=== PATIENT | male | born 1960 | race Caucasian/White ===

== ENCOUNTER → 2016-11-10 | Outpatient (CLI) | payer OTHER, BC ==
[~2016-11-10] MED LIST: CALC625T23 PO; ENOX100S5 SQ; GABA300C PO; INSU100C SQ-INSULIN; INSU100I18 SQ; INSU100V8 SQ; LACT1CAP35 PO; METF100010 PO; MULT-412 PO; RIVA15TA PO; RIVA20TA PO; ZOLP10TA PO
== END | disposition home or self-care (01) ==
LOC: RAD 13:46
PROVIDERS: ATTEND Family Medicine
DX: N20.2 Calculus of kidney with calculus of ureter (principal)
CPT/HCPCS: 74176

== ENCOUNTER → 2016-11-30 | Outpatient (CLI) | payer OTHER, BC ==
[2016-11-30 09:14] LABS: BLOOD UREA NITROGEN 18 mg/dL (7-18)
[2016-11-30 09:18] LABS: ASPARTATE AMINO TRANSFERASE 81 U/L (15-37)
== END | disposition home or self-care (01) ==
LOC: STAR 08:23
PROVIDERS: ATTEND Otolaryngology
DX: Z01.818 Encounter for other preprocedural examination (principal); C02.9 Malignant neoplasm of tongue, unspecified; C14.0 Malignant neoplasm of pharynx, unspecified
CPT/HCPCS: 36415; 80053

== ENCOUNTER 2016-12-05 09:18 | Day surgery (SDC) | payer OTHER ==
[2016-11-30 08:57] VITALS: BP 132/90
[~2016-12-05] VITALS: Ht 188 cm; Wt 133.0 kg
[2016-12-05] MEDS ORDERED: LACTATED RINGERS 1,000 ML IV SCH (09:44)
[2016-12-05 09:53] VITALS: BP 132/90
[2016-12-05] MEDS ORDERED: ACETAMINOPHEN 500 MG TABLET ONE ×3 (10:46→10:47)
[2016-12-05] MEDS ORDERED: MIDAZOLAM 1 MG/ML, 2ML ONE (10:55)
[2016-12-05] MEDS ORDERED: FENTANYL PF 250 MCG/5ML ONE (10:55)
[2016-12-05] MEDS ORDERED: METOCLOPRAMIDE 5 MG/ML, 2ML ONE (11:15)
[2016-12-05] MEDS ORDERED: PROPOFOL 10 MG/ML, 20ML ONE (11:15)
[2016-12-05] MEDS ORDERED: SUCCINYLCHOLINE 20 MG/ML, 10ML ONE (11:15)
[2016-12-05] MEDS ORDERED: EPHEDRINE 50 MG/ML, 1ML ONE (11:15)
[2016-12-05] MEDS ORDERED: ONDANSETRON 2MG/ML, 2ML ONE (11:15)
[2016-12-05] MEDS ORDERED: CEFAZOLIN 1,000 MG ONE (11:15)
[2016-12-05] MEDS ORDERED: EPHEDRINE 50 MG/ML, 1ML IVPush PRN (11:30)
[2016-12-05] MEDS ORDERED: PROMETHAZINE 25 MG/ML, 1ML IV PRN (11:30)
[2016-12-05] MEDS ORDERED: hydrALAzine 20 MG/ML, 1ML IV PRN (11:30)
[2016-12-05] MEDS ORDERED: OXYcodone 5 MG/5 ML ORAL.SOL UDC PO PRN (11:30)
[2016-12-05] MEDS ORDERED: METOPROLOL 1 MG/ML, 5ML IV PRN (11:30)
[2016-12-05] MEDS ORDERED: LABETALOL 5MG/ML, 20ML IV PRN (11:30)
[2016-12-05] MEDS ORDERED: MEPERIDINE/PF 25MG/0.5ML IVPush PRN (11:30)
[2016-12-05] MEDS ORDERED: FENTANYL PF 100 MCG/2ML IV PRN (11:30)
[2016-12-05] MEDS ORDERED: HYDROmorphone 1 MG/ML, 1ML IV PRN (11:30)
[2016-12-05] MEDS ORDERED: ONDANSETRON 2MG/ML, 2ML IVPush PRN (11:30)
[2016-12-05] MEDS ORDERED: LIDOCAINE/PF 1%-EPI 1:200K, 30 ML INFIL ONE (11:32)
== END 2016-12-05 14:20 | disposition home or self-care (01) ==
LOC: OUT 09:18
PROVIDERS: ATTEND Otolaryngology
DX: K13.21 Leukoplakia of oral mucosa, including tongue (principal); K14.8 Other diseases of tongue; E11.9 Type 2 diabetes mellitus without complications; Z86.718 Personal history of other venous thrombosis and embolism; Z80.1 Family history of malignant neoplasm of trachea, bronchus and lung; Z82.3 Family history of stroke; Z83.49 Family history of other endocrine, nutritional and metabolic diseases; Z83.3 Family history of diabetes mellitus; Z72.89 Other problems related to lifestyle; Z79.4 Long term (current) use of insulin
CPT/HCPCS: 36415; 41120; 82962; 85610; 85730; 88305; 88331; J0330; J0690; J2250; J2405; J2704; J2765; J3010; J3490; J7120

== ENCOUNTER → 2017-04-26 | Outpatient (CLI) | payer OTHER | END | disposition home or self-care (01) | LOC: ROC 12:48 | PROVIDERS: ATTEND Radiology Radiation Oncology | DX: C02.9 Malignant neoplasm of tongue, unspecified (principal); E78.00 Pure hypercholesterolemia, unspecified; G47.30 Sleep apnea, unspecified; Z79.899 Other long term (current) drug therapy; Z86.718 Personal history of other venous thrombosis and embolism | CPT/HCPCS: 99214; G0463 ==

== ENCOUNTER 2017-05-08 09:12 | Inpatient (IN) | payer OTHER ==
[2017-05-05 09:28] VITALS: BP 161/93
[2017-05-05 09:56] LABS: BLOOD UREA NITROGEN 13 mg/dL (7-18)
[2017-05-05 10:03] LABS: ASPARTATE AMINO TRANSFERASE 94 U/L (15-37)
[~2017-05-08] VITALS: Ht 190.5 cm; Wt 136.0 kg
[~2017-05-08 09:12] MED LIST changes: +BACITRACIN OINT 500U/GM, 15 GM ONE; +DAPA10TA PO; +EPINEPHRINE 1 MG/ML, 1ML ONE; +INSU300I SQ; +INSU3INS SQ-INSULIN; +LIDOCAINE/PF 0.5% ,50ML ONE
[2017-05-08] MEDS ORDERED: ENOX100S5 SQ (09:50)
[2017-05-08] MEDS ORDERED: RIVA20TA PO (09:50)
[2017-05-08] MEDS: LACTATED RINGERS 1,000 ML IV SCH ×3 (10:04→21:19)
[2017-05-08] MEDS ORDERED: PREG75CA PO (10:09)
[2017-05-08] MEDS ORDERED: MIDAZOLAM 1 MG/ML, 2ML ONE (10:30)
[2017-05-08] MEDS ORDERED: FENTANYL PF 100 MCG/2ML ONE ×4 (10:30→14:45)
[2017-05-08] MEDS ORDERED: ONDANSETRON 2MG/ML, 2ML IVPush PRN ×2 (11:00→17:30)
[2017-05-08] MEDS ORDERED: LABETALOL 5MG/ML, 20ML IV PRN (11:00)
[2017-05-08] MEDS ORDERED: FENTANYL PF 100 MCG/2ML IV PRN (11:00)
[2017-05-08] MEDS ORDERED: METOCLOPRAMIDE 5 MG/ML, 2ML IV PRN (11:00)
[2017-05-08] MEDS ORDERED: HYDROmorphone 1 MG/ML, 1ML IV PRN (11:00)
[2017-05-08] MEDS ORDERED: ACETAMINOPHEN 325 MG TABLET PO PRN (11:00)
[2017-05-08] MEDS ORDERED: hydrALAzine 20 MG/ML, 1ML IV PRN (11:00)
[2017-05-08] MEDS ORDERED: OXYcodone 5 MG/5 ML ORAL.SOL UDC PO PRN (11:00)
[2017-05-08] MEDS ORDERED: PROPOFOL 10 MG/ML, 20ML ONE (11:02)
[2017-05-08] MEDS ORDERED: NEOSTIGMINE 1 MG/ML, 10ML ONE (11:02)
[2017-05-08] MEDS ORDERED: ROCURONIUM 10 MG/ML ONE (11:02)
[2017-05-08] MEDS ORDERED: ONDANSETRON 2MG/ML, 2ML ONE ×2 (11:02→14:31)
[2017-05-08] MEDS ORDERED: SUCCINYLCHOLINE 20 MG/ML, 10ML ONE (11:02)
[2017-05-08] MEDS ORDERED: CEFAZOLIN 1,000 MG ONE (11:02)
[2017-05-08] MEDS ORDERED: GLYCOPYRROLATE 0.2MG/1ML, 5ML ONE (11:02)
[2017-05-08] MEDS ORDERED: DEXAMETHASONE 4 MG/ML, 1ML ONE (11:02)
[2017-05-08] MEDS ORDERED: METOCLOPRAMIDE 5 MG/ML, 2ML ONE (14:31)
[2017-05-08 15:40] VITALS: BP 122/82
[2017-05-08] MEDS: OXYcodone 5 MG/5 ML ORAL.SOL UDC PO PRN (18:02)
[2017-05-08 19:56] VITALS: BP 126/79
[2017-05-08] MEDS ORDERED: ENOXAPARIN 100 MG/ML SQ SCH (20:30)
[2017-05-08] MEDS: [UNRECOGNIZED DRUG - REMARK] MC SCH (20:30)
[2017-05-08] MEDS ORDERED: GABAPENTIN 300 MG CAPSULE PO SCH (21:00)
[2017-05-08] MEDS ORDERED: ZOLPIDEM 10MG TABLET PO SCH (21:00)
[2017-05-08] MEDS ORDERED: PREGABALIN 75 MG CAPSULE PO SCH (21:30)
[2017-05-09 00:01] VITALS: BP 116/76
[2017-05-09] MEDS: INSULIN ASPART 100 UNITS/ML, 3ML PEN LOW DOSE SS SQ-INSULIN SCH ×3 (00:14→13:13)
[2017-05-09] MEDS: OXYcodone 5 MG/5 ML ORAL.SOL UDC PO PRN ×3 (00:27→13:16)
[2017-05-09] MEDS: LACTATED RINGERS 1,000 ML IV SCH (03:16)
[2017-05-09 03:27] VITALS: BP 112/67
[2017-05-09] MEDS: [UNRECOGNIZED DRUG - REMARK] MC SCH (04:19)
[2017-05-09 06:50] VITALS: BP 108/67
[2017-05-09] MEDS ORDERED: FLU VACC QS2017-18 (36MOS+) UP/PF 0.5 ML IM-VACC ONE (08:00)
[2017-05-09 13:06] VITALS: BP 129/72
[2017-05-09] MEDS ORDERED: OXYC5SOL8 PO (13:14)
== END 2017-05-09 14:00 | disposition home or self-care (01) | DRG 137 ==
LOC: OUT 09:12 → 4NOR 15:36 → OUT 16:21
PROVIDERS: ADMIT Otolaryngology; ATTEND Otolaryngology
PROC: 0CB7XZZ Excision of Tongue, External Approach (ICD-10-PCS; principal; 2017-05-08 11:00)
DX: C02.9 Malignant neoplasm of tongue, unspecified (principal); C79.89 Secondary malignant neoplasm of other specified sites; G47.33 Obstructive sleep apnea (adult) (pediatric); I10 Essential (primary) hypertension; E66.9 Obesity, unspecified; Z68.37 Body mass index [BMI] 37.0-37.9, adult
CPT/HCPCS: 36415; 80053; 82962; 88305; 88307; 88309; 88331; 88332; 90686; 93005; C1729; J0171; J0690; J1100; J1650; J1815; J2001; J2250; J2405; J2704; J2710; J3010; J3490; J0330; J2765; J7120

== ENCOUNTER → 2017-08-07 | Outpatient (CLI) | payer OTHER ==
[~2017-08-07] MED LIST changes: -BACITRACIN OINT 500U/GM, 15 GM ONE; -EPINEPHRINE 1 MG/ML, 1ML ONE; +GRAN1PAT TD; -LIDOCAINE/PF 0.5% ,50ML ONE; +OXYC5SOL8 PO; +PREG75CA PO
== END ==
LOC: ROC 14:51
PROVIDERS: ATTEND Radiology Radiation Oncology
DX: Z02.9 Encounter for administrative examinations, unspecified (principal)

== ENCOUNTER → 2017-08-23 | Outpatient (CLI) | payer OTHER | END | disposition home or self-care (01) | LOC: ROC 09:45 | PROVIDERS: ATTEND Radiology Radiation Oncology | DX: C02.9 Malignant neoplasm of tongue, unspecified (principal) | CPT/HCPCS: 99213; G0463 ==

== ENCOUNTER → 2018-01-09 | Outpatient (CLI) | payer OTHER | END | disposition home or self-care (01) | LOC: PETCFH 08:55 | PROVIDERS: ATTEND Radiology Radiation Oncology | DX: C02.1 Malignant neoplasm of border of tongue (principal) | CPT/HCPCS: 78815; A9552 ==

== ENCOUNTER → 2018-01-11 | Outpatient (CLI) | payer OTHER | END | disposition home or self-care (01) | LOC: ROC 07:41 | PROVIDERS: ATTEND Radiology Radiation Oncology | DX: C02.1 Malignant neoplasm of border of tongue (principal) | CPT/HCPCS: 99212; G0463 ==

== ENCOUNTER → 2018-07-06 | Outpatient (CLI) | payer OTHER | END | disposition home or self-care (01) | LOC: PETCFH 07:58 | PROVIDERS: ATTEND Otolaryngology | DX: R91.1 Solitary pulmonary nodule (principal); C02.9 Malignant neoplasm of tongue, unspecified | CPT/HCPCS: 78815; A9552 ==

== ENCOUNTER → 2019-01-23 | Outpatient (CLI) | payer OTHER ==
[~2019-01-23] MED LIST changes: +OMNIPAQUE 350 MG/ML, 100ML BOTTLE ONE
== END | disposition home or self-care (01) ==
LOC: CFH 14:07
PROVIDERS: ATTEND Otolaryngology
DX: C02.9 Malignant neoplasm of tongue, unspecified (principal); C14.0 Malignant neoplasm of pharynx, unspecified; K14.8 Other diseases of tongue
CPT/HCPCS: 70491; 82565; Q9967

== ENCOUNTER → 2019-07-09 | Outpatient (CLI) | payer OTHER ==
[~2019-07-09] MED LIST changes: -OMNIPAQUE 350 MG/ML, 100ML BOTTLE ONE
== END | disposition home or self-care (01) ==
LOC: PETCFH 12:40
PROVIDERS: ATTEND Otolaryngology
DX: C02.9 Malignant neoplasm of tongue, unspecified (principal); R22.1 Localized swelling, mass and lump, neck; J98.11 Atelectasis
CPT/HCPCS: 78815; A9552

== ENCOUNTER → 2019-08-16 | Outpatient (CLI) | payer OTHER ==
[~2019-08-16] MED LIST changes: +PHENERGAN CODEINE PO; +PREG200C PO
== END | disposition home or self-care (01) ==
LOC: CFH 11:32
PROVIDERS: ATTEND Family Medicine
DX: J18.1 Lobar pneumonia, unspecified organism (principal); R91.8 Other nonspecific abnormal finding of lung field; J98.11 Atelectasis
CPT/HCPCS: 71046

== ENCOUNTER 2019-08-20 15:48 | Inpatient (IN) | payer OTHER ==
[~2019-08-20] VITALS: Ht 190.5 cm; Wt 123.7 kg
[~2019-08-20 15:48] MED LIST changes: -PHENERGAN CODEINE PO; -PREG200C PO
--- NOTE | 2019-08-20 16:15 | NUR ---
LUNCH RN: IV PLACED, NEYMARN. AWAITING ORDERS AT THIS TIME. ALL PT NEEDS MET. CALL LIGHT WITHIN REACH
--- NOTE | 2019-08-20 16:16 | NUR ---
LUNCH RN: MD TO BEDSIDE FOR ASSESSMENT
[2019-08-20 16:53] LABS: BASOPHILS # (AUTO) 0.03 x10^3/uL (0-0.1); BASOPHILS % (AUTO) 0 % (0-1); EOSINOPHILS # (AUTO) 0.22 x10^3/uL (0-0.4); EOSINOPHILS % (AUTO) 2 % (1-7); LYMPHOCYTES # (AUTO) 0.65 x10^3/uL (1-3.4); LYMPHOCYTES % (AUTO) 7 % (22-44); MD NO; MEAN CORPUSCULAR HEMOGLOBIN 29.3 pg (27.5-34.5); MEAN CORPUSCULAR HGB CONC 32.9 g/dL (33.2-36.2); MEAN CORPUSCULAR VOLUME 89.1 fL (81-97); MEAN PLATELET VOLUME 8.4 fL (7.4-10.4); MONOCYTES # (AUTO) 0.73 x10^3/uL (0.2-0.8); MONOCYTES % (AUTO) 8 % (2-9); NEUTROPHILS # (AUTO) 7.88 x10^3/uL (1.8-6.8); NEUTROPHILS % (AUTO) 83 % (42-75); PLATELET COUNT 256 x10^3/uL (130-400); RED BLOOD COUNT 5.04 x10^6/uL (4.38-5.82); RED CELL DISTRIBUTION WIDTH 14.6 % (9.4-14.8)
[2019-08-20 17:01] LABS: ALANINE AMINOTRANSFERASE 47 U/L (12-78); ALBUMIN 2.7 g/dL (3.4-5.0); ANION GAP 11 mmol/L (5-15); CALCIUM 8.8 mg/dL (8.5-10.1); CHLORIDE 106 mmol/L (98-107); CREATININE 1.28 mg/dL (0.7-1.3)
[2019-08-20 17:02] LABS: ALKALINE PHOSPHATASE 103 U/L (45-117); BILIRUBIN,TOTAL 0.8 mg/dL (0.2-1.0); TOTAL PROTEIN 7.3 g/dL (6.4-8.2)
--- NOTE | 2019-08-20 17:45 | NUR ---
Pt arrives to ed with sob and not feeling well. Pt reports that he has been fighiting pneumonia for 3 months and has not improved despite being on abx. Assumed care from Monica Santos rn, pt awaiting ct.
--- NOTE | 2019-08-20 18:00 | NUR ---
Pt to cta at this time.
[2019-08-20] MEDS ORDERED: OMNIPAQUE 350 MG/ML, 100ML BOTTLE ONE (18:02)
[2019-08-20] MEDS ORDERED: SODIUM CHLORIDE 0.9% 1,000ML IVBOLUS ONE (18:30)
[2019-08-20] MEDS ORDERED: PIPERACILLIN/TAZO/PMX 4.5GM 100 ML IV ONE (18:30)
--- NOTE | 2019-08-20 18:45 | NUR ---
Report to Obey SALMERON
--- NOTE | 2019-08-20 19:00 | NUR ---
Abx given to Chris watts
--- NOTE | 2019-08-20 20:27 | NUR ---
TASK RN: PT. RESTING ON GUNEY WITH NO ACUTE DISTRESS NOTED. PT. ABLE TO SPEAK IN FULL SENTENCES. FAMILY AT BS FOR SUPPORT. DR. ROMAN AT BS TO EVAL PT. FOR ADMISSION AND DISCUSS FURTHER POC. 1 MED ADDED TO MED REC PT. REPORTS HE FORGOT ABOUT IT AT FIRST. VS STABLE 97% SAT ON 2L NC. ALL SAFETY MEASURES OBSERVED.
[2019-08-20] MEDS ORDERED: hydrALAzine 20 MG/ML, 1ML IVPush PRN (20:30)
[2019-08-20] MEDS ORDERED: DOCUSATE 100 MG CAPSULE PO PRN (20:30)
[2019-08-20] MEDS ORDERED: PROMETHAZINE 25 MG/ML, 1ML IM PRN (20:30)
[2019-08-20] MEDS ORDERED: OXYcodone IR 5MG TABLET PO PRN (20:30)
[2019-08-20] MEDS ORDERED: ACETAMINOPHEN 325 MG TABLET PO PRN (20:30)
[2019-08-20] MEDS ORDERED: ONDANSETRON ODT 4 MG PO PRN (20:30)
[2019-08-20] MEDS ORDERED: POLYETHYLENE GLYCOL 17 GM PACKET PO PRN (20:30)
[2019-08-20] MEDS ORDERED: ONDANSETRON 2MG/ML, 2ML IVPush PRN (20:30)
[2019-08-20] MEDS ORDERED: morphine SULFATE 10 MG/ML, 1ML IVPush PRN (20:30)
[2019-08-20] MEDS ORDERED: BISACODYL 10 MG SUPP PR PRN (20:30)
--- NOTE | 2019-08-20 20:30 | NUR ---
FIRST ATTEMPT TO CALL REPORT TO FLOOR.
[2019-08-20] MEDS ORDERED: PHENERGAN CODEINE PO (20:33)
[2019-08-20] MEDS ORDERED: PREG200C PO (20:39)
[2019-08-20] MEDS ORDERED: RIVA20TA PO (20:39)
--- NOTE | 2019-08-20 20:39 | NUR ---
2ND ATTEMPT TO CALL REPORT TO FLOOR.
--- NOTE | 2019-08-20 20:46 | NUR ---
WHILE DR. ROMAN AT HE TOLD PT. IT WAS OK FOR HIM TO DRINK WATER; PT. NOW DRINKING WATER.
--- NOTE | 2019-08-20 20:47 | NUR ---
REPORT CALLED TO FAVIOLA CERON. FLOOR READY FOR PT. TRANSPORT. MED REC COMPLETED (OTHER THAN INSULIN DR. ROMAN AND PT. DISCUSSED INSULIN DOSES FOR HOSPITALIZATION.)
--- NOTE | 2019-08-20 20:53 | NUR ---
DR. ROMAN BACK TO BS AT THIS TIME AND STATES PT. TO GO TO IR NOW. PT. AMBULATED TO BR; REFUSED TO WEAR O2 OR USE A URINAL AT BS; DISUCSSED IMPORTANCE OF NOT AMBULATING AROUND AND KEEPING O2 ON. PT. STILL REFUSED. WITH PT.
--- NOTE | 2019-08-20 21:29 | NUR ---
PT. TO IR VIA [facility] WITH [facility] AT THIS TIME.
[2019-08-20 21:33] LABS: FREE T4 (FREE THYROXINE) 1.09 ng/dL (0.76-1.46)
--- NOTE | 2019-08-20 21:56 | NUR ---
MARYLIN RN: PT. RETURN FROM IR; BEING TRANSPORTED TO FLOOR NOW.
[2019-08-20 22:47] VITALS: BP 100/65
[2019-08-20] MEDS: INSULIN LISPRO 100 UNITS/ML, PEN SQ-INSULIN SCH (23:02)
[2019-08-20] MEDS: GUAIFENESIN ER 600 MG TABLET PO SCH (23:02)
[2019-08-20] MEDS: PREGABALIN 200 MG CAPSULE PO SCH (23:02)
[2019-08-20] MEDS: ZOLPIDEM 10MG TABLET PO SCH (23:02)
[2019-08-21] MEDS ORDERED: PIPERACILLIN/TAZO/PMX 3.375GM 50 ML IV SCH (01:00)
[2019-08-21] MEDS: PIPERACILLIN/TAZO/PMX 4.5GM 100 ML IV SCH ×4 (01:04→19:37)
[2019-08-21 01:25] VITALS: BP 110/69
[2019-08-21] MEDS ORDERED: BENZONATATE 100 MG CAPSULE ONE (01:29)
[2019-08-21] MEDS: BENZONATATE 100 MG CAPSULE PO PRN ×2 (01:31→20:21)
[2019-08-21 06:15] LABS: BASOPHILS # (AUTO) 0.03 x10^3/uL (0-0.1); BASOPHILS % (AUTO) 0 % (0-1); EOSINOPHILS % (AUTO) 4 % (1-7); LYMPHOCYTES # (AUTO) 0.82 x10^3/uL (1-3.4); LYMPHOCYTES % (AUTO) 10 % (22-44); MD NO; MEAN CORPUSCULAR HEMOGLOBIN 29.7 pg (27.5-34.5); MEAN CORPUSCULAR HGB CONC 33.4 g/dL (33.2-36.2); MEAN CORPUSCULAR VOLUME 89.1 fL (81-97); MEAN PLATELET VOLUME 8.4 fL (7.4-10.4); MONOCYTES # (AUTO) 0.71 x10^3/uL (0.2-0.8); MONOCYTES % (AUTO) 9 % (2-9); NEUTROPHILS # (AUTO) 6.26 x10^3/uL (1.8-6.8); NEUTROPHILS % (AUTO) 77 % (42-75); PLATELET COUNT 233 x10^3/uL (130-400); RED BLOOD COUNT 4.55 x10^6/uL (4.38-5.82); RED CELL DISTRIBUTION WIDTH 14.7 % (9.4-14.8)
[2019-08-21 06:16] LABS: ALBUMIN 2.3 g/dL (3.4-5.0); ANION GAP 8 mmol/L (5-15); CALCIUM 8.4 mg/dL (8.5-10.1); CHLORIDE 107 mmol/L (98-107)
[2019-08-21 06:20] LABS: ALANINE AMINOTRANSFERASE 38 U/L (12-78); ALKALINE PHOSPHATASE 92 U/L (45-117); BILIRUBIN,TOTAL 0.9 mg/dL (0.2-1.0); CHOL/HDL RATIO 3.6; CHOLESTEROL, TOTAL 143 mg/dL (140-239); CREATININE 1.14 mg/dL (0.7-1.3); HDL CHOL % 28 % (26-37); HDL CHOLESTEROL (DIRECT) 40 mg/dL (40-60); LDL CHOLESTEROL,CALCULATED 90 mg/dL (54-169); LDL/HDL RATIO 2.3 (0.5-3.0); TOTAL PROTEIN 6.3 g/dL (6.4-8.2); TRIGLYCERIDES 66 mg/dL (50-200); VLDL CHOLESTEROL 13 mg/dL (0-25)
[2019-08-21 07:23] VITALS: BP 99/66
[2019-08-21] MEDS: RIVAROXABAN 20 MG TABLET PO SCH (08:22)
[2019-08-21] MEDS: GUAIFENESIN ER 600 MG TABLET PO SCH ×2 (08:22→20:21)
[2019-08-21] MEDS: MULTIVITAMIN 1 TABLET PO SCH (08:22)
[2019-08-21] MEDS: INSULIN LISPRO 100 UNITS/ML, PEN SQ-INSULIN SCH ×4 (08:23→20:21)
[2019-08-21] MEDS ORDERED: INSULIN GLARGINE 100 UNITS/ML, PEN SQ-INSULIN SCH (09:00)
[2019-08-21] MEDS: DOXYCYCLINE 100 MG in DEXTROSE 5% 250 ML IV SCH ×2 (11:23→22:02)
[2019-08-21 12:20] LABS: RAPID INFLUENZA A Negative (Negative); RAPID INFLUENZA B Negative (Negative)
--- NOTE | 2019-08-21 12:49 | NUR ---
... Addendum: 08/21/19 at 1250 by JENNA ARTEAGA OT Amended: Links added.
--- NOTE | 2019-08-21 12:50 | NUR ---
ddff Addendum: 08/21/19 at 1250 by JENNA ARTEAGA OT Amended: Links added.
[2019-08-21 13:30] VITALS: BP 106/67
[2019-08-21 19:27] VITALS: BP 107/63
[2019-08-21] MEDS: ZOLPIDEM 10MG TABLET PO SCH (20:21)
[2019-08-21] MEDS: PREGABALIN 200 MG CAPSULE PO SCH (20:21)
[2019-08-21] MEDS: INSULIN GLARGINE 100 UNITS/ML, PEN SQ-INSULIN SCH (20:22)
[2019-08-22] MEDS: PIPERACILLIN/TAZO/PMX 4.5GM 100 ML IV SCH ×4 (00:49→18:36)
[2019-08-22 00:57] VITALS: BP 125/72
[2019-08-22 05:21] LABS: BASOPHILS # (AUTO) 0.02 x10^3/uL (0-0.1); BASOPHILS % (AUTO) 0 % (0-1); EOSINOPHILS # (AUTO) 0.42 x10^3/uL (0-0.4); EOSINOPHILS % (AUTO) 6 % (1-7); LYMPHOCYTES # (AUTO) 0.78 x10^3/uL (1-3.4); LYMPHOCYTES % (AUTO) 10 % (22-44); MD NO; MEAN CORPUSCULAR HEMOGLOBIN 29.4 pg (27.5-34.5); MEAN CORPUSCULAR HGB CONC 32.5 g/dL (33.2-36.2); MEAN CORPUSCULAR VOLUME 90.5 fL (81-97); MEAN PLATELET VOLUME 8.3 fL (7.4-10.4); MONOCYTES # (AUTO) 0.62 x10^3/uL (0.2-0.8); MONOCYTES % (AUTO) 8 % (2-9); NEUTROPHILS # (AUTO) 5.67 x10^3/uL (1.8-6.8); NEUTROPHILS % (AUTO) 76 % (42-75); PLATELET COUNT 223 x10^3/uL (130-400); RED BLOOD COUNT 4.45 x10^6/uL (4.38-5.82); RED CELL DISTRIBUTION WIDTH 14.6 % (9.4-14.8)
[2019-08-22 05:34] LABS: ALBUMIN 2.3 g/dL (3.4-5.0); ANION GAP 8 mmol/L (5-15); CALCIUM 8.5 mg/dL (8.5-10.1); CHLORIDE 108 mmol/L (98-107)
[2019-08-22 05:38] LABS: ALANINE AMINOTRANSFERASE 39 U/L (12-78); ALKALINE PHOSPHATASE 91 U/L (45-117); BILIRUBIN,TOTAL 0.6 mg/dL (0.2-1.0); CREATININE 1.19 mg/dL (0.7-1.3); TOTAL PROTEIN 6.4 g/dL (6.4-8.2)
[2019-08-22] MEDS: GUAIFENESIN ER 600 MG TABLET PO SCH ×2 (08:03→21:00)
[2019-08-22] MEDS: MULTIVITAMIN 1 TABLET PO SCH (08:03)
[2019-08-22] MEDS: RIVAROXABAN 20 MG TABLET PO SCH (08:03)
[2019-08-22] MEDS: INSULIN GLARGINE 100 UNITS/ML, PEN SQ-INSULIN SCH ×2 (08:04→21:06)
[2019-08-22] MEDS: INSULIN LISPRO 100 UNITS/ML, PEN SQ-INSULIN SCH ×4 (08:04→21:07)
[2019-08-22 10:00] VITALS: BP 105/68
[2019-08-22] MEDS: DOXYCYCLINE 100 MG in DEXTROSE 5% 250 ML IV SCH ×2 (10:36→22:48)
[2019-08-22 13:02] VITALS: BP 110/65
[2019-08-22 20:18] VITALS: BP 108/67
[2019-08-22] MEDS: ZOLPIDEM 10MG TABLET PO SCH (21:06)
[2019-08-22] MEDS: PREGABALIN 200 MG CAPSULE PO SCH (21:06)
[2019-08-22] MEDS: PROMETHAZINE/COD. 10MG/6.25MG/5 ML ORAL SOL PO PRN (21:38)
[2019-08-23] MEDS: PIPERACILLIN/TAZO/PMX 4.5GM 100 ML IV SCH ×4 (00:52→19:24)
[2019-08-23 00:56] VITALS: BP 110/74
[2019-08-23 07:46] VITALS: BP 100/62
[2019-08-23] MEDS: INSULIN LISPRO 100 UNITS/ML, PEN SQ-INSULIN SCH ×4 (08:21→21:30)
[2019-08-23] MEDS: GUAIFENESIN ER 600 MG TABLET PO SCH ×2 (08:22→21:00)
[2019-08-23] MEDS: INSULIN GLARGINE 100 UNITS/ML, PEN SQ-INSULIN SCH ×2 (08:22→21:30)
[2019-08-23] MEDS: MULTIVITAMIN 1 TABLET PO SCH (08:22)
[2019-08-23] MEDS: DOXYCYCLINE 100 MG in DEXTROSE 5% 250 ML IV SCH (10:55)
[2019-08-23 13:04] VITALS: BP 97/58
[2019-08-23] MEDS: RIVAROXABAN 20 MG TABLET PO SCH (16:41)
[2019-08-23 20:22] VITALS: BP 117/75
[2019-08-23] MEDS: DOXYCYCLINE 100MG TABLET PO SCH (21:29)
[2019-08-23] MEDS: ZOLPIDEM 10MG TABLET PO SCH (21:29)
[2019-08-23] MEDS: PREGABALIN 200 MG CAPSULE PO SCH (21:29)
[2019-08-23] MEDS: PROMETHAZINE/COD. 10MG/6.25MG/5 ML ORAL SOL PO PRN (22:25)
[2019-08-24] MEDS: PIPERACILLIN/TAZO/PMX 4.5GM 100 ML IV SCH ×4 (00:51→19:40)
[2019-08-24 01:29] VITALS: BP 108/76
[2019-08-24 07:13] VITALS: BP 107/77
[2019-08-24] MEDS: INSULIN LISPRO 100 UNITS/ML, PEN SQ-INSULIN SCH ×4 (08:16→21:18)
[2019-08-24] MEDS: RIVAROXABAN 20 MG TABLET PO SCH (08:24)
[2019-08-24] MEDS: DOXYCYCLINE 100MG TABLET PO SCH (08:24)
[2019-08-24] MEDS: MULTIVITAMIN 1 TABLET PO SCH (08:24)
[2019-08-24] MEDS: INSULIN GLARGINE 100 UNITS/ML, PEN SQ-INSULIN SCH ×2 (08:25→21:17)
[2019-08-24 13:45] VITALS: BP 115/74
[2019-08-24] MEDS ORDERED: OMNIPAQUE 350 MG/ML, 75ML BOTTLE ONE (14:59)
[2019-08-24] MEDS ORDERED: RIVAROXABAN 20 MG TABLET PO SCH (17:00)
[2019-08-24] MEDS ORDERED: [UNRECOGNIZED DRUG - REMARK] MC ONE (17:00)
[2019-08-24 19:28] VITALS: BP 107/69
[2019-08-24] MEDS: ZOLPIDEM 10MG TABLET PO SCH (20:54)
[2019-08-24] MEDS: PREGABALIN 200 MG CAPSULE PO SCH (20:54)
[2019-08-24] MEDS: PROMETHAZINE/COD. 10MG/6.25MG/5 ML ORAL SOL PO SCH (21:16)
[2019-08-25 01:23] VITALS: BP 113/75
[2019-08-25] MEDS: PIPERACILLIN/TAZO/PMX 4.5GM 100 ML IV SCH ×4 (02:07→20:15)
[2019-08-25 08:05] VITALS: BP 105/70
[2019-08-25] MEDS: INSULIN GLARGINE 100 UNITS/ML, PEN SQ-INSULIN SCH ×2 (08:22→21:18)
[2019-08-25] MEDS: MULTIVITAMIN 1 TABLET PO SCH (08:22)
[2019-08-25] MEDS: INSULIN LISPRO 100 UNITS/ML, PEN SQ-INSULIN SCH ×4 (08:23→21:17)
[2019-08-25 13:05] VITALS: BP 114/71
[2019-08-25] MEDS ORDERED: RIVAROXABAN 20 MG TABLET PO SCH (17:00)
[2019-08-25 19:29] VITALS: BP 158/96
[2019-08-25] MEDS: ZOLPIDEM 10MG TABLET PO SCH (21:17)
[2019-08-25] MEDS: PREGABALIN 200 MG CAPSULE PO SCH (21:17)
[2019-08-25] MEDS: PROMETHAZINE/COD. 10MG/6.25MG/5 ML ORAL SOL PO SCH (22:07)
[2019-08-26] MEDS: PIPERACILLIN/TAZO/PMX 4.5GM 100 ML IV SCH ×3 (02:00→13:41)
[2019-08-26 02:04] VITALS: BP 116/70
[2019-08-26 04:51] LABS: HCT (SEDRATE) 39.5 % (39.2-51.8)
[2019-08-26 04:56] LABS: ALANINE AMINOTRANSFERASE 59 U/L (12-78); ALBUMIN 2.2 g/dL (3.4-5.0); ANION GAP 8 mmol/L (5-15); CALCIUM 8.8 mg/dL (8.5-10.1); CHLORIDE 109 mmol/L (98-107)
[2019-08-26 04:58] LABS: BASOPHILS # (AUTO) 0.02 x10^3/uL (0-0.1); BASOPHILS % (AUTO) 0 % (0-1); EOSINOPHILS # (AUTO) 0.35 x10^3/uL (0-0.4); EOSINOPHILS % (AUTO) 6 % (1-7); LYMPHOCYTES # (AUTO) 0.83 x10^3/uL (1-3.4); LYMPHOCYTES % (AUTO) 15 % (22-44); MD NO; MEAN CORPUSCULAR HGB CONC 32.3 g/dL (33.2-36.2); MEAN CORPUSCULAR VOLUME 89.9 fL (81-97); MEAN PLATELET VOLUME 8.2 fL (7.4-10.4); MONOCYTES # (AUTO) 0.55 x10^3/uL (0.2-0.8); MONOCYTES % (AUTO) 10 % (2-9); NEUTROPHILS # (AUTO) 3.91 x10^3/uL (1.8-6.8); NEUTROPHILS % (AUTO) 69 % (42-75); PLATELET COUNT 243 x10^3/uL (130-400); RED BLOOD COUNT 4.43 x10^6/uL (4.38-5.82); RED CELL DISTRIBUTION WIDTH 14.3 % (9.4-14.8)
[2019-08-26 05:06] LABS: ALKALINE PHOSPHATASE 103 U/L (45-117); BILIRUBIN,TOTAL 0.5 mg/dL (0.2-1.0); CREATININE 1.02 mg/dL (0.7-1.3); TOTAL PROTEIN 6.1 g/dL (6.4-8.2)
[2019-08-26 06:37] VITALS: BP 109/70
[2019-08-26] MEDS: INSULIN LISPRO 100 UNITS/ML, PEN SQ-INSULIN SCH ×2 (08:00→12:18)
[2019-08-26] MEDS: MULTIVITAMIN 1 TABLET PO SCH (08:21)
[2019-08-26] MEDS: INSULIN GLARGINE 100 UNITS/ML, PEN SQ-INSULIN SCH (08:38)
[2019-08-26] MEDS ORDERED: FLUMAZENIL 0.1 MG/1 ML, 5ML ONE (10:47)
[2019-08-26] MEDS ORDERED: FENTANYL PF 100 MCG/2ML ONE (10:47)
[2019-08-26] MEDS ORDERED: NALOXONE 1 MG/ML, 2ML ONE (10:47)
[2019-08-26] MEDS ORDERED: MIDAZOLAM 1 MG/ML, 5ML ONE (10:47)
[2019-08-26] MEDS ORDERED: LINE600T12 PO (11:42)
[2019-08-26 12:17] VITALS: BP 98/66
[2019-08-26 15:26] VITALS: BP 119/79
== END 2019-08-26 16:00 | disposition home or self-care (01) | DRG 194 ==
LOC: ED 20:15 → EDIP 20:23 → ED 20:25 → 4WST 22:23 → DCLOUNGE 08-26 15:52
PROVIDERS: ADMIT Internal Medicine; ATTEND Internal Medicine
PROC: 0W993ZZ Drainage of Right Pleural Cavity, Percutaneous Approach (ICD-10-PCS; principal; 2019-08-20)
PROC: 0BBF3ZX Excision of Right Lower Lung Lobe, Percutaneous Approach, Diagnostic (ICD-10-PCS; 2019-08-25)
DX: J12.0 Adenoviral pneumonia (principal); E87.2 Acidosis; J90 Pleural effusion, not elsewhere classified; D68.51 Activated protein C resistance; J98.19 Other pulmonary collapse; E11.65 Type 2 diabetes mellitus with hyperglycemia; G47.33 Obstructive sleep apnea (adult) (pediatric); Z79.01 Long term (current) use of anticoagulants; Z79.4 Long term (current) use of insulin; Z82.3 Family history of stroke; Z82.49 Family history of ischemic heart disease and other diseases of the circulatory system; Z82.5 Family history of asthma and other chronic lower respiratory diseases; Z85.810 Personal history of malignant neoplasm of tongue; Z92.21 Personal history of antineoplastic chemotherapy; Z92.3 Personal history of irradiation; Z83.3 Family history of diabetes mellitus; C44.90 Unspecified malignant neoplasm of skin, unspecified
CPT/HCPCS: 32405; 32555; 36415; 71045; 71260; 77012; 80053; 80061; 82784; 82787; 82945; 82962; 83036; 83605; 83615; 83735; 83986; 84145; 84157; 84439; 84443; 85025; 85651; 86140; 86480; 86631; 86632; 86635; 86738; 87015; 87040; 87070; 87081; 87102; 87116; 87205; 87206; 87400; 87633; 88112; 88305; 88341; 88342; 89051; 93306; 96365; 99156; 99157; 99285; G0378; J2250; J2543; J3010; J7060; Q9967; J1815; J2310; J7030

== ENCOUNTER 2019-09-05 13:43 | Outpatient (CLI) | payer OTHER ==
[~2019-09-05 13:43] MED LIST changes: +LINE600T12 PO; +PHENERGAN CODEINE PO; +PREG200C PO
== END 2019-09-05 23:59 | disposition home or self-care (01) ==
LOC: CFH 13:43
PROVIDERS: ATTEND Family Medicine
DX: J98.11 Atelectasis (principal); J90 Pleural effusion, not elsewhere classified; R91.8 Other nonspecific abnormal finding of lung field; J98.4 Other disorders of lung; J18.9 Pneumonia, unspecified organism
CPT/HCPCS: 71046

== ENCOUNTER → 2019-09-11 | Outpatient (CLI) | payer OTHER | END | disposition home or self-care (01) | LOC: ROC 07:26 | PROVIDERS: ATTEND Radiology Radiation Oncology | DX: C02.1 Malignant neoplasm of border of tongue (principal); R22.1 Localized swelling, mass and lump, neck | CPT/HCPCS: 99214; G0463 ==

== ENCOUNTER → 2019-09-25 | Outpatient (CLI) | payer OTHER | END | disposition home or self-care (01) | LOC: PETCFH 08:44 | PROVIDERS: ATTEND Internal Medicine | DX: C06.9 Malignant neoplasm of mouth, unspecified (principal); R91.1 Solitary pulmonary nodule; K76.0 Fatty (change of) liver, not elsewhere classified; J92.9 Pleural plaque without asbestos | CPT/HCPCS: 78815; A9552 ==

== ENCOUNTER 2019-09-27 13:21 | Outpatient (CLI) | payer OTHER ==
[2019-09-27] MEDS ORDERED: OMNIPAQUE 350 MG/ML, 75ML BOTTLE ONE (15:57)
== END 2019-09-27 23:59 | disposition home or self-care (01) ==
LOC: CFH 13:21
PROVIDERS: ATTEND Radiology Radiation Oncology
DX: C78.00 Secondary malignant neoplasm of unspecified lung (principal); C02.9 Malignant neoplasm of tongue, unspecified
CPT/HCPCS: 71260; Q9967

== ENCOUNTER → 2020-02-25 | Outpatient (CLI) | payer OTHER ==
[~2020-02-25] MED LIST changes: +OMNIPAQUE 350 MG/ML, 75ML BOTTLE ONE
== END | disposition home or self-care (01) ==
LOC: CFH 10:01
PROVIDERS: ATTEND Internal Medicine Hematology & Oncology
DX: C02.9 Malignant neoplasm of tongue, unspecified (principal); R91.8 Other nonspecific abnormal finding of lung field; J92.9 Pleural plaque without asbestos
CPT/HCPCS: 71260; Q9967

== ENCOUNTER → 2020-03-19 | Outpatient (CLI) | payer OTHER ==
[~2020-03-19] MED LIST changes: -OMNIPAQUE 350 MG/ML, 75ML BOTTLE ONE; +OXYC10SY PO
== END | disposition home or self-care (01) ==
LOC: CFH 10:40
PROVIDERS: ATTEND Internal Medicine Infectious Disease
DX: J98.4 Other disorders of lung (principal); J18.9 Pneumonia, unspecified organism; J92.9 Pleural plaque without asbestos; R91.8 Other nonspecific abnormal finding of lung field
CPT/HCPCS: 71046

== ENCOUNTER → 2020-03-24 | Outpatient (CLI) | payer OTHER | END | disposition home or self-care (01) | LOC: RAD 09:47 | PROVIDERS: ATTEND Internal Medicine Infectious Disease | DX: C76.0 Malignant neoplasm of head, face and neck (principal); R91.1 Solitary pulmonary nodule | CPT/HCPCS: 36573; C1751 ==

== ENCOUNTER → 2020-04-06 | Outpatient (CLI) | payer OTHER ==
[~2020-04-06] MED LIST changes: +OMNIPAQUE 350 MG/ML, 75ML BOTTLE ONE
== END | disposition home or self-care (01) ==
LOC: CFH 09:39
PROVIDERS: ATTEND Internal Medicine Hematology & Oncology
DX: C02.9 Malignant neoplasm of tongue, unspecified (principal); R91.8 Other nonspecific abnormal finding of lung field; J92.9 Pleural plaque without asbestos; R59.0 Localized enlarged lymph nodes
CPT/HCPCS: 71260; Q9967

== ENCOUNTER → 2020-04-08 | Outpatient (CLI) | payer OTHER ==
[~2020-04-08] MED LIST changes: +ERTAPENEM 1 GM in SODIUM CHLORIDE 0.9% 50 ML IV ONE; -OMNIPAQUE 350 MG/ML, 75ML BOTTLE ONE
== END | disposition home or self-care (01) ==
LOC: ROC 07:55
PROVIDERS: ATTEND Radiology Radiation Oncology
DX: C78.01 Secondary malignant neoplasm of right lung (principal); C02.9 Malignant neoplasm of tongue, unspecified; Z79.899 Other long term (current) drug therapy
CPT/HCPCS: 99213; G0463

== ENCOUNTER → 2020-05-13 | Outpatient (CLI) | payer OTHER ==
[~2020-05-13] MED LIST changes: +DEXA4TAB66 PO; +DOXY100T PO; -ERTAPENEM 1 GM in SODIUM CHLORIDE 0.9% 50 ML IV ONE; +MORP30TA81 PO; +MORPHINE PO; +OLAN5TAB3 PO
== END | disposition home or self-care (01) ==
LOC: PETCFH 04-30 08:18
PROVIDERS: ATTEND Internal Medicine Hematology & Oncology
DX: C02.9 Malignant neoplasm of tongue, unspecified (principal); C78.01 Secondary malignant neoplasm of right lung; R91.8 Other nonspecific abnormal finding of lung field; J98.11 Atelectasis; I25.10 Atherosclerotic heart disease of native coronary artery without angina pectoris
CPT/HCPCS: 78815; A9552

== ENCOUNTER → 2020-05-19 | Outpatient (CLI) | payer OTHER | END | disposition home or self-care (01) | LOC: LAB 15:59 | PROVIDERS: ATTEND Internal Medicine Hematology & Oncology | DX: Z51.11 Encounter for antineoplastic chemotherapy (principal); Z51.12 Encounter for antineoplastic immunotherapy; G89.3 Neoplasm related pain (acute) (chronic); C02.9 Malignant neoplasm of tongue, unspecified; D68.51 Activated protein C resistance; Z79.899 Other long term (current) drug therapy | CPT/HCPCS: 36415; 82330 ==

== ENCOUNTER 2020-07-09 21:43 | Inpatient (IN) | payer OTHER ==
[~2020-07-09] VITALS: Ht 190.5 cm; Wt 101.7 kg
[~2020-07-09 21:43] MED LIST changes: +BENZ100C PO; +CLIN40CR TP; +NYST1000 PO
--- NOTE | 2020-07-09 21:43 | NUR ---
INITIAL PT CONTACT. PT PRESENTS TO ED VIA EMS C/O ALOC, GLF AND FAILURE TO THRIVE. PER EMS, PT WAS PICKED UP AT HOME AFTER CALLED 911, PT HAD A GLF WHERE HE STRUCK HIS HEAD, LAC RIGHT EYEBROW AND CHEEK. ACCORDING TO , PT HAS NOT BEEN EATING OR DRINKING AND HAS FAILURE TO THRIVE, RECENTLY WENT "MISSING" FOR A FEW WEEKS AND RETURNED WITH SIGNIFICANT WEIGHT LOSS AND ALOC. PT HAS STAGE 4 LUNG CANCER "IT WILL KILL ME, IT PROBABLY IS KILLING ME". VITALS WITH EMS: BP 88/50, HR 160 A FLUTTER, RR 32-40, 98% RA. PT GIVEN 1500 ML NS, BP 102/58. C-COLLAR IN PLACE. PT TRANSFERED TO [facility], FLAT AFFECT. PT A&O2-3. CONTINUOUS PULSE OX AND WIND TURBINE INSTALLER IN PLACE. CALL LIGHT WITHIN REACH. WILL CONTINUE TO MONITOR.
--- NOTE | 2020-07-09 22:59 | NUR ---
ERP AT BEDSIDE
[2020-07-09] MEDS ORDERED: DIPHTHERIA-TETANUS ADULT 0.5ML IM-VACC ONE (23:00)
[2020-07-09] MEDS ORDERED: SODIUM CHLORIDE 0.9% 1,000ML IVBOLUS ONE (23:30)
[2020-07-09] MEDS ORDERED: SODIUM CHLORIDE FLUSH 10ML SYR IVF ONE (23:30)
--- NOTE | 2020-07-09 23:37 | NUR ---
PT TO CT
[2020-07-09 23:45] LABS: BASOPHILS % (AUTO) 0 % (0-1); EOSINOPHILS % (AUTO) 0 % (1-7); LYMPHOCYTES % (AUTO) 2 % (22-44); MEAN CORPUSCULAR HEMOGLOBIN 28.8 pg (27.5-34.5); MEAN CORPUSCULAR HGB CONC 30.8 g/dL (33.2-36.2); MEAN PLATELET VOLUME 8.5 fL (7.4-10.4); MONOCYTES % (AUTO) 7 % (2-9); NEUTROPHILS % (AUTO) 91 % (42-75); PLATELET COUNT 302 x10^3/uL (130-400); RED BLOOD COUNT 3.68 x10^6/uL (4.38-5.82); RED CELL DISTRIBUTION WIDTH 18.3 % (9.4-14.8)
--- NOTE | 2020-07-09 23:45 | NUR ---
PT RETURNED FROM CT
[2020-07-09 23:47] LABS: ALANINE AMINOTRANSFERASE 12 U/L (12-78); ALBUMIN 2.5 g/dL (3.4-5.0); CALCIUM 9.5 mg/dL (8.5-10.1); CHLORIDE 110 mmol/L (98-107); CREATININE 0.82 mg/dL (0.7-1.3)
[2020-07-09 23:48] LABS: MICROSCOPIC AUTO
[2020-07-09 23:50] LABS: ALKALINE PHOSPHATASE 127 U/L (45-117); BILIRUBIN,TOTAL 0.5 mg/dL (0.2-1.0); TOTAL PROTEIN 6.2 g/dL (6.4-8.2)
[2020-07-09 23:59] LABS: ANION GAP 21 mmol/L (5-15)
[2020-07-10 00:01] LABS: AMPHETAMINE SCREEN, URINE Negative (Negative); BARBITURATE SCREEN, URINE Negative (Negative); BENZODIAZEPINE SCREEN, URINE Negative (Negative); CANNABINOID SCREEN, URINE Negative (Negative); COCAINE SCREEN, URINE Negative (Negative); METHADONE SCREEN, URINE Negative (Negative); OPIATE SCREEN, URINE Positive (Negative)
--- NOTE | 2020-07-10 00:02 | NUR ---
PT SUPINE ON GURNEY RESTING COMFORTABLY WITH EYES CLOSED. NAD, VSS. NO ADDITIONAL NEEDS AT THIS TIME. CALL LIGHT AND PERSONAL BELONGINGS WITHIN REACH. CONTINUOUS PULSE OX AND PHARMACOVIGILANCE SPECIALIST IN PLACE.
[2020-07-10] MEDS ORDERED: DIPH,PERTUSS(ACELL),TET VAC/PF 0.5 ML IM-VACC ONE (00:10)
[2020-07-10 00:15] LABS: MD NO
[2020-07-10] MEDS ORDERED: CEFTRIAXONE PMX 1GM/50ML 50 ML ONE (00:51)
[2020-07-10] MEDS ORDERED: DILTIAZEM 5 MG/ML, 5ML IV ONE (01:00)
[2020-07-10] MEDS ORDERED: AZITHROMYCIN 500 MG in SODIUM CHLORIDE 0.9% 250 ML IVPB ONE (01:00)
[2020-07-10] MEDS ORDERED: CEFTRIAXONE PMX 1GM/50ML 50 ML IVPB ONE (01:00)
[2020-07-10] MEDS ORDERED: SODIUM CHLORIDE 0.9% 1,000ML IVBOLUS ONE (01:00)
[2020-07-10] MEDS ORDERED: DILTIAZEM 5 MG/ML, 5ML ONE ×2 (01:08→01:53)
[2020-07-10] MEDS ORDERED: SODIUM CHLORIDE 0.9% 1,000 ML IV ONE (01:30)
[2020-07-10] MEDS ORDERED: DILTIAZEM 5 MG/ML, 5ML IVPush ONE (01:30)
[2020-07-10] MEDS ORDERED: SODIUM CHLORIDE FLUSH 10ML SYR IVF PRN (01:30)
[2020-07-10] MEDS ORDERED: D5%-0.45% NACL 1,000 ML IV SCH (02:00)
--- NOTE | 2020-07-10 02:00 | NUR ---
[facility] AT BEDSIDE. PT SUPINE ON GURNEY, NO ACUTE CHANGES. VSS. PT DENIES ANY NEEDS AT THIS TIME. CALL LIGHT AND PERSONAL BELONGINGS WITHIN REACH
[2020-07-10] MEDS ORDERED: ONDANSETRON 2MG/ML, 2ML IVPush PRN (02:30)
[2020-07-10] MEDS ORDERED: POLYETHYLENE GLYCOL 17 GM PACKET PO PRN (02:30)
[2020-07-10] MEDS ORDERED: DOCUSATE 100 MG CAPSULE PO PRN (02:30)
[2020-07-10] MEDS ORDERED: hydrALAzine 20 MG/ML, 1ML IVPush PRN (02:30)
[2020-07-10] MEDS ORDERED: OXYcodone IR 5MG TABLET PO PRN (02:30)
[2020-07-10] MEDS ORDERED: ONDANSETRON ODT 4 MG PO PRN (02:30)
[2020-07-10] MEDS ORDERED: morphine SULFATE 10 MG/ML, 1ML IVPush PRN (02:30)
[2020-07-10] MEDS ORDERED: ACETAMINOPHEN 325 MG TABLET PO PRN (02:30)
[2020-07-10] MEDS ORDERED: BISACODYL 10 MG SUPP PR PRN (02:30)
[2020-07-10] MEDS ORDERED: PROMETHAZINE 25 MG/ML, 1ML IM PRN (02:30)
[2020-07-10 02:58] LABS: FREE T4 (FREE THYROXINE) 0.9 ng/dL (0.76-1.46)
--- NOTE | 2020-07-10 03:05 | NUR ---
PT SUPINE ON GURNEY, NO ACUTE CHANGES. VSS. PT DENIES ANY NEEDS AT THIS TIME. CALL LIGHT AND PERSONAL BELONGINGS WITHIN REACH. MEDICATED PER EMAR. NO ADDITIONAL NEEDS AT THIS TIME.
[2020-07-10] MEDS ORDERED: INSULIN LISPRO 100 UNITS/ML, PEN ONE (03:12)
[2020-07-10] MEDS: INSULIN LISPRO 100 UNITS/ML, PEN SQ-INSULIN SCH ×5 (03:16→21:26)
--- NOTE | 2020-07-10 04:15 | NUR ---
hospital bed requested for pt
--- NOTE | 2020-07-10 05:58 | NUR ---
PT SUPINE ON GURNEY, RESTING COMFORTABLY, NAD, VSS. PT DENIES ANY NEEDS AT THIS TIME. CALL LIGHT AND PERSONAL BELONGINGS IN PLACE. CONTINUOUS PULSE OX AND CARDIAC MONITORING IN PLACE.
--- NOTE | 2020-07-10 06:02 | NUR ---
ATTEMPT TO CALL DR. SANDERS REGARDING PT HR AND NEED FOR ADDITIONAL DILTIAZAM, NO ANSWER. MESSAGE LEFT.
--- NOTE | 2020-07-10 06:35 | NUR ---
ATTEMPT X2 TO CONTACT DR. SANDERS REGARDING PT HR AND NEED FOR ADDITIONAL DILT ORDER, NO ANSWER.
--- NOTE | 2020-07-10 06:52 | NUR ---
DISCUSSION WITH EDGAR ULLOA, PROVIDER CARING FOR PT. DISCUSSED NEED FOR DILT DRIP, PROVIDER WILL ORDER FOR RATE CONTROL.
[2020-07-10] MEDS ORDERED: DILTIAZEM 125 MG in SODIUM CHLORIDE 0.9% 100 ML IV SCH (07:00)
--- NOTE | 2020-07-10 07:01 | NUR ---
REPORT TO RICARDO SALMERON.
--- NOTE | 2020-07-10 07:13 | NUR ---
REPORT RECEIVED FROM FAVIOLA CERVANTES, PT HR 130S. HOSPITALIST AWARE, DILTIAZEM GTT ORDERED. PHARMACY CALLED TO SEND [place]. PT IS NORMOTENSIVE. PT STILL AWAITING CARD TELE BED ASSIGNMENT AND TRANSPORT AT THIS TIME.
--- NOTE | 2020-07-10 07:36 | NUR ---
pt's Samantha Johnston, phone [phone], requesting to be point of contact.
--- NOTE | 2020-07-10 08:06 | NUR ---
pt's blood glucose measured with pt's own meter, per , pt does not take insulin for glucose under 180, am dose insulin refused. pt is drowsy, but oriented x 4. neuro intact, bilateral honey extractor equal. pt denies pain. diltiazem gtt infusing per emar via iv pump. pt assisted to void with urinal, approx 500ml clear yellow urine voided. bed locked and in lowest position, call light in reach. pt instructed on use, verbalizes understanding.
--- NOTE | 2020-07-10 08:53 | NUR ---
GERTRUDIS Henson notified pt's HR is 130-140s, diltiazem gtt started 1 hr ago. PA instructed RN to increase rate to 10mL/hr. PA notified pt's requests a phone call update from provider when able.
--- NOTE | 2020-07-10 08:59 | NUR ---
diltiazem gtt increased to 10mL/hr.
--- NOTE | 2020-07-10 10:20 | NUR ---
hospitalist Sixto at bedside, HR remains at rate 130s, afib, no ectopy. order received to increase diltiazem gtt to 15mL/hr, gtt increased according to hospitalist instructions. RN bedside swallow completed with 3 oz water, pt coughed with water intake, order received to keep pt NPO and order swallow eval. hospitalist Sixto notified pt's xaralto will be held, order needed for parenteral vte prop. no further orders received at this time.
--- NOTE | 2020-07-10 11:20 | NUR ---
PT SLEEPING, RESPS EVEN AND UNLABORED. AFIB RATE 120-130'S ON COMPUTER EDUCATION TEACHER WITH NO ECTOPY. DILTIAZEM INFUSING AT 15ML/HR. AWAITING CARDIAC TELE BED AND TRANSPORT AT THIS TIME.
--- NOTE | 2020-07-10 11:53 | NUR ---
pt resting on gurney, awake, alert. resps even and unlabored. HR up to 140s, afib, no ectopy. dilt gtt still running at 15mL/hr. Hospitalist Sixto notified. Hospitalist notified pt meets sepsis criteria, got blood cx and antibiotics rocephin/zithromax this am at approx 0100. Hospitalist states he is consulting cardiology and ID (pt is followed by ID for chronic pneumonia), orders to follow.
--- NOTE | 2020-07-10 12:00 | NUR ---
TASK RN: PT RESTLESS IN [facility], AWAKE/ALERT AND FOLLOWING COMMANDS THOUGH A&OX2-3. AFIB RVR ON MONITOR, HR 140-160. PT HAS BLOOD ON BLANKETS AND GOWN SECONDARY TO DC'ING OWN IV. ADDITIONAL PIV ACCESS ESTABLISHED. LINENS CHANGED. BP/SPO2/ECG MONITORING IN PLACE. DILTIAZEM 5MG/HR INFUSING.
--- NOTE | 2020-07-10 12:00 | NUR ---
REPORT GIVEN TO JAMIE DE LA CRUZ.
[2020-07-10] MEDS ORDERED: RIVAROXABAN 20 MG TABLET PO SCH (12:30)
--- NOTE | 2020-07-10 12:59 | NUR ---
TASK RN: ELBERT, RN AT BEDSIDE TO ATTEMPT SECOND PIV FOR ABX INFUSION
[2020-07-10] MEDS: MEROPENEM 1 GM in SODIUM CHLORIDE 0.9% 100 ML IV SCH ×2 (13:04→20:30)
--- NOTE | 2020-07-10 13:15 | NUR ---
REPORT FROM FAVIOLA DE LA CRUZ, CARE ASSUMED BY THIS RN.
[2020-07-10] MEDS ORDERED: AMIODARONE 150 MG in DEXTROSE 5% 100 ML IV ONE (13:30)
[2020-07-10] MEDS ORDERED: FILTER 0.22 MICRON IV SCH (14:00)
[2020-07-10] MEDS: AMIODARONE 450 MG in DEXTROSE 5% 241 ML IV PRN (14:08)
--- NOTE | 2020-07-10 14:30 | NUR ---
amio bolus infused, amio maintainance gtt running at 33mL/hr. pt tolerating well, HR 120-130s, aflutter (per auto body painter). Prosthetics Lab Technician Michael ADAN at bedside, per , RN to start heparin gtt (weight based, non-stroke, no bolus) if pt is unable to get swallow eval and cleared for PO intake to anticoagulate with xaralto by this evening. pt is a&o, resps even and unlabored, denies pain. pt voided 1000mL clear yellow urine with RN assist, for a total of 2500 mL so far today.
--- NOTE | 2020-07-10 14:41 | NUR ---
covid swab collected and walked to lab, pt in droplet plus isolation precautions. sitter at bedside as pt pulled out PIV and has attempted to get out of bed earlier today.
--- NOTE | 2020-07-10 15:29 | NUR ---
PT MOVED ONTO HOSPITAL BED, MOVED TO ROOM 6. REPORT GIVEN TO FAVIOLA BAZAN AT BEDSIDE.
[2020-07-10] MEDS ORDERED: BENZ100C PO (15:48)
[2020-07-10] MEDS ORDERED: naproxen PO (15:48)
[2020-07-10] MEDS ORDERED: ACET-1600 PO (15:48)
[2020-07-10] MEDS ORDERED: ZOLP10TA PO (15:48)
[2020-07-10] MEDS ORDERED: vitamin e PO (15:48)
[2020-07-10] MEDS ORDERED: SENN-190 PO (15:48)
[2020-07-10] MEDS ORDERED: DOCU100T3 PO (15:48)
[2020-07-10] MEDS ORDERED: morphine PO (15:48)
[2020-07-10] MEDS ORDERED: LORA-446 PO (15:48)
[2020-07-10] MEDS ORDERED: PREG300C PO (15:48)
[2020-07-10] MEDS ORDERED: METF500T17 PO (15:48)
[2020-07-10] MEDS ORDERED: EMPA25TA PO (15:48)
[2020-07-10] MEDS ORDERED: ATOR20TA37 PO (15:48)
[2020-07-10] MEDS ORDERED: RIVA20TA PO (15:48)
[2020-07-10] MEDS ORDERED: INSU100V8 SQ (15:48)
[2020-07-10] MEDS ORDERED: humalog SQ-INSULIN (15:48)
--- NOTE | 2020-07-10 16:00 | NUR ---
Zacarias cardoso in [facility] - 07/10/20 at 1843 by AURELIANO PATIENT VOIDED 650 ML CLEAR YELLOW URINE
--- NOTE | 2020-07-10 16:17 | NUR ---
PATIENT CLEANED OF INCONTINENCE, WET LINEN AND REPOSITIONED.
[2020-07-10] MEDS ORDERED: PROPOFOL 10 MG/ML, 20ML ONE (16:30)
--- NOTE | 2020-07-10 16:57 | NUR ---
LATE ENTRY: TASK RN: PT SET UP FOR CARDIOVERSION. 164:50 MG PROPOGOL GIVEN BY . VSS. 164: SHOCK DELIVERED BY CORRECTIONS CASEWORKER W/ AT BEDSIDE. VSS,NAD. 165: PT OPENING EYES. VSS. 1702: PT STARTING TO CONVERSE. VSS.
--- NOTE | 2020-07-10 17:05 | NUR ---
TASK RN: 150MG PROPOFOL WASTED W/ [place] RN.
--- NOTE | 2020-07-10 17:08 | NUR ---
TASK RN: PT RESTING ON HOSPITAL BED W/ CALL LIGHT IN REACH AND SIDE RAILS UPX2. AROUSABLE TO VOICE. JOSEPH NO.
--- NOTE | 2020-07-10 17:45 | NUR ---
PATIENT VOIDED 650 ML CLEAR YELLOW URINE
--- NOTE | 2020-07-10 18:03 | NUR ---
PATIENT RESTING QUIETLY ON BED WITH AT BEDSIDE, VSS, NAD, WILL CONTINUE TO MONITOR
[2020-07-10 20:47] VITALS: BP 126/68
[2020-07-11 01:08] VITALS: BP 113/69
[2020-07-11] MEDS ORDERED: LORazepam 2 MG/ML, 1ML IVPush PRN (01:30)
[2020-07-11] MEDS: MEROPENEM 1 GM in SODIUM CHLORIDE 0.9% 100 ML IV SCH ×3 (04:00→22:21)
[2020-07-11 05:44] LABS: BASOPHILS % (AUTO) 0 % (0-1); EOSINOPHILS % (AUTO) 0 % (1-7); LYMPHOCYTES % (AUTO) 3 % (22-44); MEAN CORPUSCULAR HGB CONC 30.7 g/dL (33.2-36.2); MONOCYTES % (AUTO) 6 % (2-9); NEUTROPHILS % (AUTO) 91 % (42-75); PLATELET COUNT 351 x10^3/uL (130-400); RED BLOOD COUNT 3.83 x10^6/uL (4.38-5.82); RED CELL DISTRIBUTION WIDTH 19.1 % (9.4-14.8)
[2020-07-11 05:46] LABS: CHLORIDE 119 mmol/L (98-107); MD NO
[2020-07-11 05:52] LABS: ALANINE AMINOTRANSFERASE 12 U/L (12-78); ALBUMIN 2.7 g/dL (3.4-5.0); ALKALINE PHOSPHATASE 140 U/L (45-117); ANION GAP 18 mmol/L (5-15); BILIRUBIN,TOTAL 0.4 mg/dL (0.2-1.0); CALCIUM 11.2 mg/dL (8.5-10.1); CHOL/HDL RATIO 3.3; CHOLESTEROL, TOTAL 174 mg/dL (140-239); CREATININE 1.17 mg/dL (0.7-1.3); HDL CHOL % 30 % (26-37); HDL CHOLESTEROL (DIRECT) 53 mg/dL (40-60); LDL CHOLESTEROL,CALCULATED 98 mg/dL (54-169); LDL/HDL RATIO 1.8 (0.5-3.0); TOTAL PROTEIN 6.9 g/dL (6.4-8.2); TRIGLYCERIDES 117 mg/dL (50-200); VLDL CHOLESTEROL 23 mg/dL (0-25)
[2020-07-11] MEDS: INSULIN LISPRO 100 UNITS/ML, PEN SQ-INSULIN SCH ×2 (07:00→12:30)
[2020-07-11] MEDS: AMIODARONE 450 MG in DEXTROSE 5% 241 ML IV PRN (08:06)
[2020-07-11 08:16] VITALS: BP 110/66
[2020-07-11] MEDS ORDERED: AMIODARONE 150 MG in DEXTROSE 5% 100 ML IV ONE (08:30)
[2020-07-11] MEDS: SODIUM BICARBONATE 8.4% 150 MEQ in DEXTROSE 5% 1,000 ML IV SCH ×2 (10:42→19:29)
[2020-07-11] MEDS ORDERED: morphine SULFATE 10 MG/ML, 1ML IVPush PRN (11:00)
[2020-07-11] MEDS: CALCITONIN SALMON 200 UNITS/ML, 2ML SQ SCH ×2 (11:03→21:51)
[2020-07-11 12:48] LABS: TROPONIN I < 0.015 ng/mL (0.000-0.045)
[2020-07-11] MEDS ORDERED: SODIUM BICARB 8.4%, 50ML SYRINGE ONE (12:58)
[2020-07-11] MEDS ORDERED: SODIUM CHLORIDE 0.9% 1,000 ML IV SCH (13:30)
[2020-07-11] MEDS ORDERED: FENTANYL PF 100 MCG/2ML IVPush PRN (13:30)
[2020-07-11] MEDS ORDERED: NOREPINEPHRINE 8 MG in SODIUM CHLORIDE 0.9% 242 ML IV PRN (13:30)
[2020-07-11] MEDS ORDERED: LIDOCAINE-MPF 1%, 2ML ENDO PRN (13:30)
[2020-07-11] MEDS ORDERED: SODIUM CHLORIDE 0.9% 1,000ML IVBOLUS ONE (13:30)
[2020-07-11] MEDS ORDERED: DEXTROSE 50%, 50ML SYRINGE IVPush PRN (13:30)
[2020-07-11] MEDS ORDERED: PHARMACY MAY ADJ FOR RENAL FX MC SCH (13:30)
[2020-07-11] MEDS ORDERED: GLUCAGON 1 MG IM PRN (13:30)
[2020-07-11] MEDS ORDERED: D5%-0.45NACL+KCL 20MEQ 1,000 ML IV SCH (13:30)
[2020-07-11] MEDS ORDERED: DEXTROSE 4 GM TAB.CHEW PO PRN (13:30)
[2020-07-11] MEDS: REGULAR INSULIN 100 UNITS in SODIUM CHLORIDE 0.9% 99 ML IV PRN (14:43)
[2020-07-11 14:52] LABS: INTERNATIONAL NORMALIZED RATIO 1.13 (0.93-1.1)
[2020-07-11] MEDS: PROPOFOL 100 ML IV PRN ×2 (14:54→21:28)
[2020-07-11 14:55] LABS: ALBUMIN 2.6 g/dL (3.4-5.0); ANION GAP 21 mmol/L (5-15); CALCIUM 10.4 mg/dL (8.5-10.1); CHLORIDE 123 mmol/L (98-107)
[2020-07-11 14:59] LABS: ALANINE AMINOTRANSFERASE 14 U/L (12-78); ALKALINE PHOSPHATASE 136 U/L (45-117); BILIRUBIN,TOTAL 0.5 mg/dL (0.2-1.0); TOTAL PROTEIN 6.7 g/dL (6.4-8.2); TRIGLYCERIDES 132 mg/dL (50-200); TROPONIN I < 0.015 ng/mL (0.000-0.045)
[2020-07-11 15:00] LABS: MEAN CORPUSCULAR HEMOGLOBIN 29.1 pg (27.5-34.5); MEAN PLATELET VOLUME 8.1 fL (7.4-10.4); PLATELET COUNT 334 x10^3/uL (130-400); RED BLOOD COUNT 3.72 x10^6/uL (4.38-5.82); RED CELL DISTRIBUTION WIDTH 19.4 % (9.4-14.8)
[2020-07-11] MEDS: KSCALE TO 4.5 IV SCH ×2 (15:29→21:57)
[2020-07-11] MEDS ORDERED: POTASSIUM CHLORIDE PMX 100 ML IV ONE (15:30)
[2020-07-11 15:40] LABS: ACETONE, SERUM Large (80mg/dL) (Negative)
[2020-07-11 15:47] LABS: MICROSCOPIC INDICATED
[2020-07-11] MEDS ORDERED: ROCURONIUM 10MG/ML,5ML ONE (16:32)
[2020-07-11] MEDS ORDERED: PROPOFOL 10 MG/ML, 50ML ONE (16:32)
[2020-07-11] MEDS ORDERED: PROPOFOL 10 MG/ML, 100ML IV ONE (16:32)
[2020-07-11] MEDS ORDERED: SUCCINYLCHOLINE 20 MG/ML, 10ML ONE (16:32)
[2020-07-11] MEDS ORDERED: MIDAZOLAM 1 MG/ML, 5ML ONE (16:32)
[2020-07-11] MEDS ORDERED: ETOMIDATE 20 MG/10 ML ONE (16:32)
[2020-07-11 16:42] LABS: MD YES
[2020-07-11 16:47] LABS: BAND#(MANUAL) 1.61 x10^3/uL; BANDS%(MANUAL) 8 % (0-7); LYMPHS% (MANUAL) 2 % (22-44); METAMYELOCYTES% (MANUAL) 1 % (0-1); MONOS#(MANUAL) 1.21 x10^3/uL (0.3-2.7); MONOS% (MANUAL) 6 % (2-9); MYELOCYTES% (MANUAL) 1 % (0-0); SEG#(MANUAL) 16.48 x10^3/uL (1.8-6.8); SEGS% (MANUAL) 82 % (42-75)
[2020-07-11 16:48] LABS: <PLATELET ESTIMATE> ADEQUATE; <PLT MORPHOLOGY> NORMAL PLT MORPH; ANISOCYTOSIS 1+; ECHINOCYTES 1+; OVALOCYTES 1+; PMNS WITH VACUOLES 1+; TEAR DROPS 1+
[2020-07-11] MEDS ORDERED: PHARMACOKINETIC MONITORING MC PRN (19:30)
[2020-07-11] MEDS ORDERED: VANCOMYCIN 2,500 MG in SODIUM CHLORIDE 0.9% 500 ML IV ONE (19:30)
[2020-07-11] MEDS ORDERED: PHARMACOKINETIC CONSULTATION MC ONE (19:30)
[2020-07-11] MEDS ORDERED: VANCOMYCIN PER PHARMACY MC PRN (19:30)
[2020-07-11 21:12] LABS: ANION GAP 13 mmol/L (5-15); CALCIUM 9.8 mg/dL (8.5-10.1); CHLORIDE 126 mmol/L (98-107); CREATININE 1.18 mg/dL (0.7-1.3)
[2020-07-11 21:16] LABS: TROPONIN I 0.091 ng/mL (0.000-0.045)
[2020-07-11] MEDS ORDERED: POTASSIUM CHLORIDE 40 MEQ in SODIUM CHLORIDE 0.9% 100 ML IV ONE (21:30)
[2020-07-11] MEDS: ENOXAPARIN 100 MG/ML SQ SCH (21:51)
[2020-07-11] MEDS: SODIUM CHLORIDE FLUSH 10ML SYR IVF SCH (21:52)
[2020-07-12 01:24] LABS: ANION GAP 8 mmol/L (5-15); CALCIUM 9.6 mg/dL (8.5-10.1); CHLORIDE 128 mmol/L (98-107); CREATININE 1.06 mg/dL (0.7-1.3)
[2020-07-12 01:28] LABS: TROPONIN I 0.127 ng/mL (0.000-0.045)
[2020-07-12] MEDS: AMIODARONE 450 MG in DEXTROSE 5% 241 ML IV PRN (02:07)
[2020-07-12] MEDS ORDERED: POTASSIUM CHLORIDE 40 MEQ in SODIUM CHLORIDE 0.9% 100 ML IV ONE ×2 (02:30→04:30)
[2020-07-12 03:58] LABS: ALANINE AMINOTRANSFERASE 13 U/L (12-78); ALBUMIN 2.3 g/dL (3.4-5.0); ANION GAP 7 mmol/L (5-15); BILIRUBIN, DIRECT 0.1 mg/dL (0.1-0.2); CALCIUM 9.6 mg/dL (8.5-10.1); CHLORIDE 128 mmol/L (98-107); CREATININE 1.06 mg/dL (0.7-1.3)
[2020-07-12 04:00] LABS: ALKALINE PHOSPHATASE 112 U/L (45-117); BILIRUBIN,TOTAL 0.4 mg/dL (0.2-1.0)
[2020-07-12 04:27] LABS: BASOPHILS % (AUTO) 0 % (0-1); EOSINOPHILS % (AUTO) 0 % (1-7); LYMPHOCYTES % (AUTO) 3 % (22-44); MEAN CORPUSCULAR HEMOGLOBIN 29.6 pg (27.5-34.5); MEAN CORPUSCULAR HGB CONC 32.8 g/dL (33.2-36.2); MEAN PLATELET VOLUME 7.2 fL (7.4-10.4); MONOCYTES % (AUTO) 9 % (2-9); NEUTROPHILS % (AUTO) 89 % (42-75); PLATELET COUNT 276 x10^3/uL (130-400); RED BLOOD COUNT 3.36 x10^6/uL (4.38-5.82); RED CELL DISTRIBUTION WIDTH 18.8 % (9.4-14.8)
[2020-07-12] MEDS: SODIUM BICARBONATE 8.4% 150 MEQ in DEXTROSE 5% 1,000 ML IV SCH (04:42)
[2020-07-12 04:48] LABS: BILIRUBIN,INDIRECT 0.3 mg/dL (0.0-2.0)
[2020-07-12] MEDS: REGULAR INSULIN 100 UNITS in SODIUM CHLORIDE 0.9% 99 ML IV PRN (05:03)
[2020-07-12] MEDS: KSCALE TO 4.5 IV SCH ×2 (05:03→10:06)
[2020-07-12] MEDS: MEROPENEM 1 GM in SODIUM CHLORIDE 0.9% 100 ML IV SCH (06:10)
[2020-07-12 06:34] LABS: MD SCAN
[2020-07-12] MEDS: ENOXAPARIN 100 MG/ML SQ SCH (08:09)
[2020-07-12] MEDS: SODIUM CHLORIDE FLUSH 10ML SYR IVF SCH (08:10)
[2020-07-12] MEDS: CALCITONIN SALMON 200 UNITS/ML, 2ML SQ SCH (08:43)
[2020-07-12] MEDS ORDERED: PANTOPRAZOLE 40 MG IV IV SCH (09:00)
[2020-07-12] MEDS ORDERED: VANCOMYCIN 2,000 MG in SODIUM CHLORIDE 0.9% 500 ML IV SCH ×2 (09:00→15:00)
[2020-07-12 10:24] LABS: CALCIUM 9.4 mg/dL (8.5-10.1); CREATININE 0.98 mg/dL (0.7-1.3)
[2020-07-12 10:51] LABS: ANION GAP 4 mmol/L (5-15); CHLORIDE 126 mmol/L (98-107)
[2020-07-12] MEDS ORDERED: INSULIN GLARGINE 100 UNITS/ML, PEN SQ-INSULIN ONE (11:30)
[2020-07-12] MEDS ORDERED: CALC200V SQ (11:51)
[2020-07-12] MEDS ORDERED: AMIO200T42 PO (11:51)
[2020-07-12 11:57] VITALS: BP 91/44
[2020-07-12] MEDS ORDERED: MORPHINE SULFATE 4 MG/ML, 1ML IVPush PRN (12:00)
[2020-07-12] MEDS ORDERED: AMOX1TAB64 PO (12:16)
[2020-07-12] MEDS ORDERED: INSULIN LISPRO 100 UNITS/ML, PEN SQ-INSULIN SCH (16:00)
[2020-07-12] MEDS ORDERED: AMIODARONE 200 MG TABLET PO SCH (16:00)
== END 2020-07-12 13:00 | disposition hospice, home (50) | DRG 871 ==
LOC: ED 22:13 → EDIP 07-10 01:43 → 4WST 07-10 19:18 → CCU 07-11 13:07
PROVIDERS: ADMIT Internal Medicine; ATTEND Internal Medicine
PROC: 5A2204Z Restoration of Cardiac Rhythm, Single (ICD-10-PCS; 2020-07-10)
PROC: 5A1935Z Respiratory Ventilation, Less than 24 Consecutive Hours (ICD-10-PCS; principal; 2020-07-11)
PROC: 0BH17EZ Insertion of Endotracheal Airway into Trachea, Via Natural or Artificial Opening (ICD-10-PCS; 2020-07-11)
PROC: 0T9B70Z Drainage of Bladder with Drainage Device, Via Natural or Artificial Opening (ICD-10-PCS; 2020-07-11)
DX: A41.9 Sepsis, unspecified organism (principal); G93.41 Metabolic encephalopathy; J15.9 Unspecified bacterial pneumonia; J96.01 Acute respiratory failure with hypoxia; C78.00 Secondary malignant neoplasm of unspecified lung; I48.92 Unspecified atrial flutter; I50.32 Chronic diastolic (congestive) heart failure; J91.0 Malignant pleural effusion; Z99.11 Dependence on respirator [ventilator] status; D68.59 Other primary thrombophilia; D68.51 Activated protein C resistance; D63.8 Anemia in other chronic diseases classified elsewhere; Z20.828 Contact with and (suspected) exposure to other viral communicable diseases; I48.91 Unspecified atrial fibrillation; M47.812 Spondylosis without myelopathy or radiculopathy, cervical region; R29.6 Repeated falls; R62.7 Adult failure to thrive; R65.20 Severe sepsis without septic shock; S01.111A Laceration without foreign body of right eyelid and periocular area, initial encounter; S01.81XA Laceration without foreign body of other part of head, initial encounter; W18.39XA Other fall on same level, initial encounter; Y93.89 Activity, other specified; Y92.89 Other specified places as the place of occurrence of the external cause; Y99.8 Other external cause status; Z88.8 Allergy status to other drugs, medicaments and biological substances; Z79.01 Long term (current) use of anticoagulants; Z82.3 Family history of stroke; Z83.2 Family history of diseases of the blood and blood-forming organs and certain disorders involving the immune mechanism; Z83.3 Family history of diabetes mellitus; Z85.810 Personal history of malignant neoplasm of tongue; Z87.891 Personal history of nicotine dependence; Z92.21 Personal history of antineoplastic chemotherapy; Z92.3 Personal history of irradiation; G89.11 Acute pain due to trauma; G47.33 Obstructive sleep apnea (adult) (pediatric); E86.0 Dehydration; E83.52 Hypercalcemia
CPT/HCPCS: 36415; 36600; 70450; 71045; 72125; 80048; 80053; 80061; 80299; 80307; 80320; 80329; 81001; 82010; 82140; 82247; 82248; 82803; 82962; 83036; 83605; 83690; 83735; 84100; 84145; 84439; 84443; 84478; 84484; 85025; 85610; 87040; 87070; 87081; 87205; 90471; 90714; 93005; 94002; 94003; 96360; G0378; J0456; J0696; J1650; J1815; J2185; J2250; J2704; J3370; J3480; J7060; J7070; C9113; G0480; J0282; J0330; J0630; J2060; J2270; J7030; J7040; J7050; U0003